=== PATIENT | female | born 1975 | race Caucasian/White ===

== ENCOUNTER → 2017-08-31 | Outpatient (CLI) | payer OTHER ==
[~2017-08-31] MED LIST: ADDERALL 20 MG20 MG PO; ARMOUR THYROID30 MG PO; KEFLEX500 MG PO; NORCO 7.5-3251 EACH PO; PRISTIQ ER100 MG PO
--- NOTE | 2017-09-01 18:43 | Diagnostic Imaging Report ---
EXAM: Thyroid Ultrasound INDICATION: HYPOTHYROIDISM COMPARISON: 02/11/2015. TECHNIQUE: Transverse and sagittal images were obtained of the thyroid gland. FINDINGS: Thyroid gland: Size: Right lobe 3.6 x 0.7 x 1.2 cm, Normal in size Left lobe 4.6 x 0.8 x 1.5 cm, Normal in size Isthmus 0.2 cm, Normal in size Appearance: Homogeneous echotexture without increased vascularity Masses/Nodules: Anechoic lesion in the right thyroid lobe measures 0.6 x 0.4 x 0.4 cm, previously 0.4 x 0.3 x 0.3 cm. Anechoic lesion in the medial aspect of the right thyroid lobe measuring 0.2 x 0.1 x 0.2 cm. These are consistent with cysts. Parathyroid: No focal parathyroid masses. IMPRESSION: 2 subcentimeter right thyroid lobe cysts. No follow-up warranted. Signed by: Dr. Chloe Teixeira M.D. on 09/01/2017 6:40 PM
== END ==
LOC: US 10:57
PROVIDERS: ATTEND Family Medicine
DX: E01.8 Other iodine-deficiency related thyroid disorders and allied conditions (principal)

== ENCOUNTER → 2018-04-20 | Outpatient (CLI) | payer OTHER | LOC: MAMMO 11:52 | PROVIDERS: ATTEND Family Medicine | DX: Z12.31 Encounter for screening mammogram for malignant neoplasm of breast (principal) | CPT/HCPCS: 77067 ==

== ENCOUNTER → 2020-04-17 | Outpatient (CLI) | payer OTHER ==
[~2020-04-17] MED LIST changes: +COVID-19 VACC, MRNA(MODERNA)/PF 100 MCG/0.5 ML VIAL IM ONE
== END ==
LOC: VACCPMC 17:00
DX: Z23 Encounter for immunization (principal); Z20.822 Contact with and (suspected) exposure to COVID-19

== ENCOUNTER → 2020-05-20 | Outpatient (CLI) | payer OTHER | END | DRG 951 | LOC: VACCPMC 07:45 | DX: Z23 Encounter for immunization (principal); Z20.822 Contact with and (suspected) exposure to COVID-19 | CPT/HCPCS: 0012A; 91301 ==

== ENCOUNTER → 2020-09-03 | Outpatient (CLI) | payer OTHER ==
[~2020-09-03] MED LIST changes: -COVID-19 VACC, MRNA(MODERNA)/PF 100 MCG/0.5 ML VIAL IM ONE; +DIATRIZOATE MEGL/DIATRIZOA SOD 30 ML BTL PO ONE; +IOPAMIDOL 370 MG/ML 200 ML INFUS..BTL INJ ONE; +SODIUM CHLORIDE 0.9% 50ML 50 ML ONE
== END ==
LOC: US 16:40
PROVIDERS: ATTEND Family Medicine
DX: R10.84 Generalized abdominal pain (principal)
CPT/HCPCS: 74177; 76830; Q9967

== ENCOUNTER → 2020-11-21 | Outpatient (CLI) | payer OTHER ==
[~2020-11-21] MED LIST changes: -DIATRIZOATE MEGL/DIATRIZOA SOD 30 ML BTL PO ONE; -IOPAMIDOL 370 MG/ML 200 ML INFUS..BTL INJ ONE; -SODIUM CHLORIDE 0.9% 50ML 50 ML ONE
== END ==
LOC: MAMMO 08:44
PROVIDERS: ATTEND Family Medicine
DX: Z12.31 Encounter for screening mammogram for malignant neoplasm of breast (principal)
CPT/HCPCS: 77067

== ENCOUNTER → 2020-11-29 | Outpatient (CLI) | payer OTHER ==
[~2020-11-29] MED LIST changes: +IOPAMIDOL 370 MG/ML 200 ML INFUS..BTL INJ ONE; +SODIUM CHLORIDE 0.9% 50ML 50 ML ONE
== END ==
LOC: NM 13:40
PROVIDERS: ATTEND Internal Medicine Medical Oncology
DX: R10.31 Right lower quadrant pain (principal); R59.1 Generalized enlarged lymph nodes
CPT/HCPCS: 71260; 76536; 76830; 76856; 78306; A9503; Q9967

== ENCOUNTER → 2021-01-18 | Day surgery (SDC) | payer OTHER ==
[~2021-01-18] MED LIST changes: +FENTANYL CITRATE/PF 100MCG/2 ML INJ ONE; -IOPAMIDOL 370 MG/ML 200 ML INFUS..BTL INJ ONE; +KLONOPIN0.5 MG PO; +MIDAZOLAM HCL 2 MG/2 ML VIAL ONE; +PROPOFOL IV EMULSION 10 MG/ML 20 ML VIAL ONE; +PROZAC20 MG PO; -SODIUM CHLORIDE 0.9% 50ML 50 ML ONE; +WELLBUTRIN XL300 MG PO
[2021-01-18 17:10] VITALS: BP 94/51
== END | disposition home or self-care (01) ==
LOC: OR 13:57
PROVIDERS: ATTEND Internal Medicine Gastroenterology
DX: K29.70 Gastritis, unspecified, without bleeding (principal); K63.5 Polyp of colon; K31.7 Polyp of stomach and duodenum; K20.90 Esophagitis, unspecified without bleeding; K64.8 Other hemorrhoids; K59.09 Other constipation; E03.9 Hypothyroidism, unspecified; D86.9 Sarcoidosis, unspecified; F41.8 Other specified anxiety disorders; Z01.812 Encounter for preprocedural laboratory examination; Z20.822 Contact with and (suspected) exposure to COVID-19; Z68.25 Body mass index [BMI] 25.0-25.9, adult
CPT/HCPCS: 43239; 45385; 81025; C9113; J2250; J2704; J3010; U0002